=== PATIENT | male | born 1995 | race Caucasian/White ===

== ENCOUNTER 2023-06-24 21:09 | Emergency (ER) | payer SELFPAY ==
[2023-06-24 22:01] VITALS: RESP 16; TEMP 97.8
[2023-06-24] MEDS ORDERED: Kenalog-40 IM ONE (22:21)
[2023-06-24] MEDS ORDERED: Kenalog-40 ONE (22:25)
--- NOTE | 2023-06-24 22:31 | ERPHSYRPT ---
- History of Present Illness Time Seen by Provider: 06/24/23 21:29 Source: patient Exam Limitations: no limitations Patient Subjective Stated Complaint: pt states he has had a rash on the lt side of his face for last 2-3 days. has dermal piercing to lt face done last . states rash on his face itches and lowe. 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 pt ambulatory with steady gait noted. respirations nonlabored. skin warm and dry. patchy red areas noted to lt side of face. pt reports burning and itching to lt face. fswelling noted around dermal piercing to lt face Physician History: 27 years old healthy male presented in the ER with chief complaint of rash on the face for last 2 to 3 days with progressive worsening. Reports burning itching. Initially on the left and now on the right side. Denies any irritation/redness of eyes. Timing/Duration: day(s) (2) Allergies/Adverse Reactions: No Known Drug Allergies Allergy (Verified 06/24/23 22:01) Home Medications: No Reportable Medications [No Reported Medications] 06/24/23 [History] Hx Tetanus, Diphtheria Vaccination/Date Given: No (unsure) Hx Influenza Vaccination/Date Given: No Hx Pneumococcal Vaccination/Date Given: No Immunizations Up to Date: Yes Travel Risk - International Travel Have you traveled outside of the country in past 3 weeks: No - Coronavirus Screening Are you exhibiting any of the following symptoms?: No Close contact with a COVID-19 positive Pt in past 14-21 Days: No - Vaccine Status Have you recieved a Covid-19 vaccination: No - Review of Systems Constitutional: No Symptoms Eyes: No Symptoms Ears, Nose, & Throat: No Symptoms Respiratory: No Symptoms Cardiac: No Symptoms Skin: Rash Neurological: No Symptoms Endocrine: No Symptoms - Past Medical History 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" - Past Surgical History Past Surgical History: No - Social History Smoking Status: Current every day smoker How long have you smoked: 10 y rs Drug Use: marijuana Patient Lives Alone: No - Nursing Vital Signs Nursing Vital Signs: Initial Vital Signs Temperature 97.8 F 06/24/23 21:45 Pulse Rate 102 H 06/24/23 21:45 Respiratory Rate 16 06/24/23 21:45 Blood Pressure 136/104 06/24/23 21:45 O2 Sat by Pulse Oximetry 100 06/24/23 21:45 Pain Scale Pain Intensity 4 - Physical Exam General Appearance: no apparent distress, alert Eye Exam: PERRL/EOMI Ears, Nose, Throat Exam: TMs normal, pharynx normal Neck Exam: normal inspection, non-tender, supple, full range of motion Respiratory Exam: normal breath sounds, lungs clear Cardiovascular Exam: regular rate/rhythm, normal heart sounds Extremity Exam: normal inspection Neurologic Exam: alert, oriented x 3, cooperative Skin Exam: normal color, rash (Both cheeks with linear streaks/redness. Nontender.) SpO2 Interpretation: normal SpO2: 100 O2 Delivery: Room Air Ordered Tests: Medication Summary Discontinued Medications Generic Name Dose Route Start Last Admin Trade Name Freanya PRN Reason Stop Dose Admin Triamcinolone Acetonide 40 mg 06/24/23 22:21 06/24/23 22:25 Triamcinolone Acetonide 40 Mg/Ml Ml IM 06/24/23 22:22 40 mg STAT ONE Administration Triamcinolone Acetonide Confirm 06/24/23 22:25 Triamcinolone Acetonide 40 Mg/Ml Ml Administered 06/24/23 22:26 Dose 40 mg .ROUTE .STK-MED ONE - Progress Progress: unchanged Progress Note: 06/24/23 22:29 27 years old is evaluated for rash on the face which initially started on right and no on the left as well. Patient has itching and burning sensation. Patient is concerned it is probably poison [place]. I have given a shot of Kenalog and will have him outpatient follow-up. Counseled pt/family regarding: diagnosis, need for follow-up Medical Desision Making - Risk of complications Minimal Risk: Minimal risk of morbidity - Departure Departure Disposition: Home Clinical Impression: Facial dermatitis Condition: Stable Critical Care Time: No Referrals: DOCTOR,NO FAMILY [Primary Care Provider] - Follow up/PCP as directed GUCCI CARLISLE MD [ACTIVE STAFF] - Follow up with PCP 1 day Instructions: Poison [place], Poison [place], Poison [place] ([place]) Additional Instructions: Take Benadryl as needed. Follow-up with primary care for reevaluation. Return to ER for any worsening.
[2023-06-24 22:52] VITALS: BP 127/80; PULSE 97
[2023-06-24 23:57] VITALS: O2SAT 100
== END 2023-06-24 22:50 | disposition home or self-care (01) ==
LOC: ED 21:09
DX: L30.9 Dermatitis, unspecified (principal); Z28.310 Unvaccinated for COVID-19; Z72.0 Tobacco use
CPT/HCPCS: 96372; 99282; J3301

== ENCOUNTER 2024-11-25 16:21 | Emergency (ER) | payer MEDICAID ==
[2024-11-25 16:31] VITALS: TEMP 98.1
--- NOTE | 2024-11-25 16:36 | ERPHSYRPT ---
- History of Present Illness Patient Subjective Stated Complaint: PT states "I have had chest pain on and off for the past couple months and it seems to be getting worse. I have been checking my blood pressure and it has been off the charts." Triage Nursing Assessment: PT presented alert and oriented X 3, skin pwd. Pt amb ulates with an upright steady gait. Pt able to speak in clear full sentences. Pt resting comfortably on the bed. Timing/Duration: week(s) (6-8 weeks) Severity: mild Associated Symptoms: shortness of breath, chest pain Hx Tetanus, Diphtheria Vaccination/Date Given: No (unsure) Hx Influenza Vaccination/Date Given: No Hx Pneumococcal Vaccination/Date Given: No Immunizations Up to Date: No <CHRSI,GABRIELA - Last Filed: 11/25/24 16:50> <MYNOR SUAREZ - Last Filed: 11/25/24 17:24> - History of Present Illness Physician History: PT states "I have had chest pain on and off for the past couple months and it seems to be getting worse. I have been checking my blood pressure and it has been off the charts." History of vaping (CHRIS,GABRIELA) Allergies/Adverse Reactions: No Known Drug Allergies Allergy (Verified 06/24/23 22:01) Home Medications: No Reportable Medications [No Reported Medications] 06/24/23 [History] Travel Risk - International Travel Have you traveled outside of the country in past 3 weeks: No - Emerging Infectious Disease Are you exhibiting symptoms associated with any current EIDs: No <CHRIS,GABRIELA - Last Filed: 11/25/24 16:50> - Review of Systems Constitutional: No Fever, No Chills Eyes: No Symptoms Ears, Nose, & Throat: No Symptoms Respiratory: Dyspnea, No Cough Cardiac: Chest Pain, No Edema, No Syncope Abdominal/Gastrointestinal: No Abdominal Pain, No Nausea, No Vomiting, No Diarrhea Genitourinary Symptoms: No Dysuria Musculoskeletal: No Back Pain, No Neck Pain Skin: No Rash Neurological: No Dizziness, No Focal Weakness, No Sensory Changes Psychological: No Symptoms Endocrine: No Symptoms All Other Systems: Reviewed and Negative <CHRIS,GABRIELA - Last Filed: 11/25/24 16:50> - Past Medical History Pertinent Past Medical History: No 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" - Past Surgical History Past Surgical History: No - Social History Smoking Status: Current every day smoker How long have you smoked: 10 y rs Exposure to second hand smoke: Yes Drug Use: marijuana Patient Lives Alone: No - Social Determinants of Health Will the patient participate in the screening: Yes Do you worry about a steady place to live?: No Do you have any problems with any of the following?: No known problems In the past 12 months,have you had to go without utilities?: No Transportation Issues: No Has anyone in your support network made you feel unsafe?: No Have you or anyone in your house had to go without enough: No <CHRIS,GABRIELA - Last Filed: 11/25/24 16:50> - Physical Exam General Appearance: no apparent distress, alert Eye Exam: PERRL/EOMI, eyes nml inspection Ears, Nose, Throat Exam: normal ENT inspection, TMs normal, pharynx normal, moist mucous membranes Neck Exam: normal inspection, non-tender, supple, full range of motion Respiratory Exam: normal breath sounds, lungs clear, No respiratory distress Cardiovascular Exam: regular rate/rhythm, normal heart sounds, normal peripheral pulses Gastrointestinal/Abdomen Exam: soft, normal bowel sounds, No tenderness, No mass Back Exam: normal inspection, normal range of motion, No CVA tenderness, No vertebral tenderness Extremity Exam: normal inspection, normal range of motion, pelvis stable Neurologic Exam: alert, oriented x 3, cooperative, normal mood/affect, nml cerebellar function, nml station & gait, sensation nml, No motor deficits Skin Exam: normal color, warm, dry, No rash Lymphatic Exam: No adenopathy SpO2: 100 <CHRIS,GABRIELA - Last Filed: 11/25/24 16:50> - Nursing Vital Signs Nursing Vital Signs: Initial Vital Signs Temperature 98.1 F 11/25/24 16:23 Pulse Rate 88 11/25/24 16:23 Respiratory Rate 20 11/25/24 16:23 Blood Pressure 158/106 11/25/24 16:23 O2 Sat by Pulse Oximetry 100 11/25/24 16:23 Pain Scale Pain Intensity 0 - Course Nursing assessment & vital signs reviewed: Yes EKG Interpreted by Me: Sinus Rhythm - Radiology Exams Chest X-ray Interpretation: Interpreted by me, Reviewed by me <CHRISGABRIELA - Last Filed: 11/25/24 16:50> Ordered Tests: Active Orders 24 hr Category Date Time Status EKG-ER Only STAT Care 11/25/24 16:32 Active CHEST 2 VIEWS (PA AND LAT) Stat Exams 11/25/24 16:36 Taken CBC W DIFF Stat Lab 11/25/24 16:50 Completed CK-Creatinine Phosphokinase Stat Lab 11/25/24 16:50 Completed CMP Stat Lab 11/25/24 16:50 Completed TROPONIN Q4H Lab 11/25/24 16:50 Completed TROPONIN Q4H Lab 11/25/24 20:45 Ordered TROPONIN Q4H Lab 11/26/24 00:45 Ordered Urine Triage Profile Stat Lab 11/25/24 16:33 Ordered Medication Summary Generic Name Dose Route Start Last Admin Trade Name Freq PRN Reason Stop Dose Admin Sodium Chloride 1,000 mls @ 999 mls/hr 11/25/24 16:32 11/25/24 16:44 Sodium Chloride 0.9% 1000 Ml IV 11/25/24 17:32 Not Given .Q1H1M STA Lab/Rad Data: Laboratory Result Diagrams 11/25/24 16:50 11/25/24 16:50 Laboratory Results 11/25/24 11/25/24 11/25/24 Range/Units 16:50 16:50 16:50 WBC 9.3 H (4.23-9.07) x10^3/uL RBC 4.59 L (4.63-6.08) x10^6/uL Hgb 13.9 (13.7-17.5) g/dL Hct 39.7 L (40.1-51.0) % MCV 86.5 (79.0-92.2) fL MCH 30.3 (25.7-32.2) pg MCHC 35.0 (32.3-36.5) g/dL RDW 11.9 (11.6-14.4) % Plt Count 317 (163-337) x10^3/uL MPV 9.6 (9.4-12.4) fL Gran % 56.2 (34.0-67.9) % Immature Gran % (Auto) 0.1 (0.001-0.429) % Nucleat RBC Rel Count 0.0 (0.00-0.2) % Eos # (Auto) 0.20 (0.04-0.54) x10^3/uL Immature Gran # (Auto) 0.01 (0.001-0.031) x10^3u/L Absolute Lymphs (auto) 3.05 (1.32-3.57) x10^3/uL Absolute Monos (auto) 0.76 (0.30-0.82) x10^3/uL Absolute Nucleated RBC 0.00 (0.00-0.012) x10^3u/L Lymphocytes % 32.9 (21.8-53.1) % Monocytes % 8.2 (5.3-12.2) % Eosinophils % 2.2 (0.8-7.0) % Basophils % 0.4 (0.2-1.2) % Absolute Granulocytes 5.21 (1.78-5.38) x10^3/uL Basophils # 0.04 (0.01-0.08) x10^3/uL Sodium 140 (135-145) mmol/L Potassium 4.1 (3.5-5.1) mmol/L Chloride 107 (98-107) mmol/L Carbon Dioxide 24 (22-30) mmol/L Anion Gap 14.1 (5-15) MEQ/L BUN 15 (9-20) mg/dL Creatinine 1.05 (0.66-1.25) mg/dL Estimated GFR 99.2 ML/MIN Glucose 135 H (74-106) mg/dL Calcium 10.1 (8.4-10.2) mg/dL Total Bilirubin 0.50 (0.2-1.3) mg/dL AST 27 (17-59) U/L ALT 17 (0-50) U/L Alkaline Phosphatase 67 (38-126) U/L Creatine Kinase 154 (55-170) U/L Troponin I < 0.012 (0.000-0.033) ng/mL Serum Total Protein 7.9 (6.3-8.2) g/dL Albumin 5.0 (3.5-5.0) g/dL - Progress Progress: improved, re-examined Counseled pt/family regarding: lab results, diagnosis, rad results <MYNOR SUAREZ - Last Filed: 11/25/24 17:24> - Progress Progress Note: 11/25/24 17:20 This patient was evaluated initially by Dr. Perez. He transferred care to [place] at 1700. I interpreted the patient's laboratory data results. Based on the laboratory data results there are no acute, emergent medical issues. I interpreted the patient's twelve-lead EKG. There is no evidence of any acute ischemia. He has normal sinus rhythm, normal axis deviation, normal intervals and normal QRS. The QTc is normal. 11/25/24 17:23 I interpreted the patient's preliminary chest x-ray report. There is no acute cardiopulmonary process (MYNOR SUAREZ) Medical Desision Making - Diagnostic Testing Diagnostic test were ordered, analyzed, and reviewed by me: Yes Radiological Interpretation: Interpreted by me, Teleradiologist Report <MYNOR SUAREZ - Last Filed: 11/25/24 17:24> <GABRIELA PEREZ - Last Filed: 11/25/24 16:50> - Departure Departure Disposition: Home Critical Care Time: No <MYNOR SUAREZ - Last Filed: 11/25/24 17:24> - Departure Clinical Impression: Anxiety about health, Nonspecific chest pain Condition: Stable Referrals: DOCTOR,NO FAMILY [Primary Care Provider] - Follow up/PCP as directed Additional Instructions: Call your primary care provider on 11/27/2024, to make arrangements for follow- up appointment for further evaluation management.
[2024-11-25] MEDS: Sodium Chloride 0.9% 1000 ML 1,000 ML IV STA (16:44)
[2024-11-25 16:50] LABS: Absolute Neutrophil Ct (ANC) 5.21 x10^3/uL (1.78-5.38); BASOPHIL % 0.4 % (0.2-1.2); Basophil (Absolute #) 0.04 x10^3/uL (0.01-0.08); Eosinophil % 2.2 % (0.8-7.0); Hematocrit 39.7 % (40.1-51.0); Hemoglobin 13.9 g/dL (13.7-17.5); IMMATURE GRAN # 0.01 x10^3u/L (0.001-0.031); IMMATURE GRAN % 0.1 % (0.001-0.429); Lymphocyte (Absolute #) 3.05 x10^3/uL (1.32-3.57); Lymphocytes % 32.9 % (21.8-53.1); Mean Cell Volume 86.5 fL (79.0-92.2); Mean Corpuscular Hemoglobin 30.3 pg (25.7-32.2); Mean Platelet Volume 9.6 fL (9.4-12.4); Monocyte (Absolute #) 0.76 x10^3/uL (0.30-0.82); Monocytes % 8.2 % (5.3-12.2); Neutrophil % 56.2 % (34.0-67.9); Platelet Count 317 x10^3/uL (163-337); Red Blood Count 4.59 x10^6/uL (4.63-6.08); Red Cell Distribution Width 11.9 % (11.6-14.4); White Blood Count 9.3 x10^3/uL (4.23-9.07)
[2024-11-25 17:01] VITALS: RESP 18
[2024-11-25 17:12] LABS: ANION GAP 14.1 MEQ/L (5-15); BILIRUBIN,TOTAL 0.5 mg/dL (0.2-1.3); Calcium 10.1 mg/dL (8.4-10.2); Creatinine 1 1.05 mg/dL (0.66-1.25); EST GLOMERULAR FILTRATION RATE 99.2 ML/MIN; Potassium 4.1 mmol/L (3.5-5.1); Total Protein 7.9 g/dL (6.3-8.2)
[2024-11-25 17:28] VITALS: BP 123/86; PULSE 78; O2SAT 98
--- NOTE | 2024-11-25 20:22 | XRAY ---
Indication: Chest pain. Comparison: None PA/lateral chest hyperinflated and clear. Heart and mediastinal structures within normal limits. Bony thorax intact. Impression: Nonacute hyperinflated chest.
== END 2024-11-25 17:42 | disposition home or self-care (01) ==
LOC: ED 16:21
DX: R07.9 Chest pain, unspecified (principal); R06.02 Shortness of breath; F41.9 Anxiety disorder, unspecified
CPT/HCPCS: 36415; 71046; 80053; 82550; 84484; 85025; 93005; 99283; 99285

== ENCOUNTER 2025-08-27 14:24 | Emergency (ER) | payer MEDICAID ==
[2025-08-27 14:37] VITALS: TEMP 98.5
--- NOTE | 2025-08-27 14:39 | ERPHSYRPT ---
- History of Present Illness Time Seen by Provider: 08/27/25 14:39 Historian: patient Exam Limitations: no limitations Patient Subjective Stated Complaint: pt c/o of chest pressure and has had this issue before and was told that it is probably anxiety Triage Nursing Assessment: Pt was brought to the ER by his father, matthias leach, denies pain at this time, pulses normal, skin n/w/d, no difficulty breathing, vapes and smokes marijuana, doesn't appear to be in any distress Physician History: This is a 29-year-old white male patient who presents to the emergency department with substernal, central nonradiating pressure that has occasionally been intermittent but began again this morning. He went to the [facility] and they told him to come to the emergency room because he has chest pain. He takes no medications chronically and has no known drug allergies. Patient is currently not having chest pain. He has no shortness of breath. Patient does vape and smokes marijuana on occasion. Patient's room air oxygen saturation level is 98%. He himself has never been diagnosed with coronary artery disease. Patient is in no distress Timing/Duration: today Activities at Onset: none Quality: pressure Location: substernal, central Chest Pain Radiation: no radiation Severity of Pain-Max: mild Severity of Pain-Current: none Modifying Factors: Improves With: nothing Associated Symptoms: denies symptoms Prior Chest Pain/Cardiac Workup: no prior chest pain, no prior cardiac workup Nitro Today/Relief: no nitro taken today Aspirin Treatment Today: 81 mg x 4, provided by ED Allergies/Adverse Reactions: No Known Drug Allergies Allergy (Verified 08/27/25 14:38) Home Medications: No Reportable Medications [No Reported Medications] 06/24/23 [History] Hx Tetanus, Diphtheria Vaccination/Date Given: No (unsure) Hx Influenza Vaccination/Date Given: No Hx Pneumococcal Vaccination/Date Given: No Travel Risk - International Travel Have you traveled outside of the country in past 3 weeks: No - Emerging Infectious Disease Are you exhibiting symptoms associated with any current EIDs: No - Review of Systems Constitutional: No Symptoms Eyes: No Symptoms Ears, Nose, & Throat: No Symptoms Respiratory: No Symptoms Cardiac: Chest Pain (None now) Abdominal/Gastrointestinal: No Symptoms Genitourinary Symptoms: No Symptoms Musculoskeletal: No Symptoms Skin: No Symptoms Neurological: No Symptoms Psychological: No Symptoms Endocrine: No Symptoms Hematologic/Lymphatic: No Symptoms Immunological/Allergic: No Symptoms All Other Systems: Reviewed and Negative - Past Medical History Pertinent Past Medical History: No 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" - Past Surgical History Past Surgical History: No - Social History Smoking Status: Current every day smoker How long have you smoked: marijuana Exposure to second hand smoke: Yes Drug Use: marijuana - Social Determinants of Health Will the patient participate in the screening: Yes Do you worry about a steady place to live?: No Do you have any problems with any of the following?: No known problems In the past 12 months,have you had to go without utilities?: No Transportation Issues: No Has anyone in your support network made you feel unsafe?: No Have you or anyone in your house had to go w/o enough food: No - Nursing Vital Signs Nursing Vital Signs: Initial Vital Signs Pulse Rate 60 08/27/25 14:30 Respiratory Rate 12 08/27/25 14:30 Blood Pressure 129/88 08/27/25 14:30 O2 Sat by Pulse Oximetry 98 08/27/25 14:30 Pain Scale Pain Intensity 0 - Physical Exam General Appearance: no apparent distress, alert, anxiety Eye Exam: PERRL/EOMI, eyes nml inspection Ears, Nose, Throat Exam: normal ENT inspection, moist mucous membranes Neck Exam: normal inspection, non-tender, supple, full range of motion Respiratory Exam: normal breath sounds, lungs clear, respiratory distress, airway intact Cardiovascular Exam: regular rate/rhythm, normal heart sounds, normal peripheral pulses Gastrointestinal/Abdomen Exam: soft, normal bowel sounds, No tenderness Rectal Exam: not done Back Exam: normal inspection, normal range of motion, No CVA tenderness, No vertebral tenderness Extremity Exam: normal inspection, normal range of motion, pelvis stable Neurologic Exam: alert, oriented x 3, cooperative, rubber heel and sole press tender II-XII nml as tested, normal mood/affect, nml cerebellar function, nml station & gait, sensation nml Skin Exam: normal color, warm, dry Lymphatic Exam: No adenopathy SpO2 Interpretation: normal SpO2: 99 O2 Delivery: Room Air - Course Nursing assessment & vital signs reviewed: Yes EKG Interpreted by Me: RATE (65), Sinus Rhythm, NORMAL AXIS, NORMAL INTERVALS, NORMAL QRS, Other (QTc 385 no acute ischemia) Ordered Tests: Active Orders 24 hr Category Date Time Status Slotter Operator STAT Care 08/27/25 14:46 Active EKG-ER Only STAT Care 08/27/25 14:45 Active IV Insertion STAT Care 08/27/25 14:45 Active CHEST 1 VIEW (PORTABLE) Stat Exams 08/27/25 14:46 Completed CBC W DIFF Stat Lab 08/27/25 14:57 Completed CMP Stat Lab 08/27/25 14:57 Completed TROPONIN Q4H Lab 08/27/25 14:57 Completed TROPONIN Q4H Lab 08/27/25 19:00 Ordered TROPONIN Q4H Lab 08/27/25 23:00 Ordered Medication Summary Discontinued Medications Generic Name Dose Route Start Last Admin Trade Name Deni PRN Reason Stop Dose Admin Aspirin 324 mg 08/27/25 14:45 08/27/25 15:00 Aspirin 81 Mg Tab.Chew PO 08/27/25 14:46 324 mg STAT ONE Administration Aspirin Confirm 08/27/25 15:00 Aspirin 81 Mg Tab.Chew Administered 08/27/25 15:01 Dose 324 mg .ROUTE .[place]-MED ONE Lab/Rad Data: Laboratory Result Diagrams 08/27/25 14:57 08/27/25 14:57 Laboratory Results 08/27/25 08/27/25 08/27/25 Range/Units 14:57 14:57 14:57 WBC 9.6 H (4.23-9.07) x10^3/uL RBC 5.07 (4.63-6.08) x10^6/uL Hgb 15.0 (13.7-17.5) g/dL Hct 44.9 (40.1-51.0) % MCV 88.6 (79.0-92.2) fL MCH 29.6 (25.7-32.2) pg MCHC 33.4 (32.3-36.5) g/dL RDW 12.0 (11.6-14.4) % Plt Count 322 (163-337) x10^3/uL MPV 9.5 (9.4-12.4) fL Gran % 57.3 (34.0-67.9) % Immature Gran % (Auto) 0.2 (0.001-0.429) % Nucleat RBC Rel Count 0.0 (0.00-0.2) % Eos # (Auto) 0.15 (0.04-0.54) x10^3/uL Immature Gran # (Auto) 0.02 (0.001-0.031) x10^3u/L Absolute Lymphs (auto) 3.07 (1.32-3.57) x10^3/uL Absolute Monos (auto) 0.83 H (0.30-0.82) x10^3/uL Absolute Nucleated RBC 0.00 (0.00-0.012) x10^3u/L Lymphocytes % 31.9 (21.8-53.1) % Monocytes % 8.6 (5.3-12.2) % Eosinophils % 1.6 (0.8-7.0) % Basophils % 0.4 (0.2-1.2) % Absolute Granulocytes 5.52 H (1.78-5.38) x10^3/uL Basophils # 0.04 (0.01-0.08) x10^3/uL Sodium 138 (135-145) mmol/L Potassium 4.5 (3.5-5.1) mmol/L Chloride 102 (98-107) mmol/L Carbon Dioxide 26 (22-30) mmol/L Anion Gap 14.6 (5-15) MEQ/L BUN 12 (9-20) mg/dL Creatinine 1.32 H (0.66-1.25) mg/dL Estimated GFR 75.4 ML/MIN Glucose 95 (74-106) mg/dL Calcium 10.1 (8.4-10.2) mg/dL Total Bilirubin 0.40 (0.2-1.3) mg/dL AST 22 (17-59) U/L ALT 14 (0-50) U/L Alkaline Phosphatase 66 (38-126) U/L Troponin I < 0.012 (0.000-0.033) ng/mL Serum Total Protein 8.0 (6.3-8.2) g/dL Albumin 5.1 H (3.5-5.0) g/dL - Progress Progress: improved, re-examined, unchanged Air Movement: good Progress Note: 08/27/25 17:14 My medical decision making and the assignment of moderate complexity of this patient's medical issue today is based on review of the patient's past medical history, review the patient's medication list, review the patient drug allergy list, history of present illness and physical findings on examination. The workup in this patient includes CBC, CMP, magnesium level, intravenous line, twelve-lead EKG, troponin level, D-dimer level and chest x-ray. Differential diagnosis includes anxiety about health, muscle skeletal pain, myocardial infarction, arrhythmia, electrolyte abnormalities, pulmonary embolism, pulmonary infiltrate I interpreted the preliminary chest x-ray report. I see no acute, emergent medical issues. The radiologist interpreted the final chest x-ray report. There are no acute abnormalities. Blood Culture(s) Obtained: No Antibiotics given: No Counseled pt/family regarding: lab results, diagnosis, need for follow-up, rad results Medical Desision Making - Diagnostic Testing Diagnostic test were ordered, analyzed, and reviewed by me: Yes Radiological Interpretation: Interpreted by me, Reviewed by me, Teleradiologist Report - Risk of complications Low Risk: Low risk of morbidity from additional dx testing or treatment - Departure Departure Disposition: Home Clinical Impression: Nonspecific chest pain Condition: Stable Critical Care Time: No Referrals: DOCTOR,NO FAMILY [Primary Care Provider, UNKNOWN] - Follow up/PCP as directed Additional Instructions: Call your primary care provider tomorrow, 08/28/2025, to make arrangements for follow-up appointment for further evaluation management.
[2025-08-27 14:59] LABS: BASOPHIL % 0.4 % (0.2-1.2); Basophil (Absolute #) 0.04 x10^3/uL (0.01-0.08); Eosinophil (Absolute #) 0.15 x10^3/uL (0.04-0.54); Hematocrit 44.9 % (40.1-51.0); Hemoglobin 15.0 g/dL (13.7-17.5); IMMATURE GRAN # 0.02 x10^3u/L (0.001-0.031); IMMATURE GRAN % 0.2 % (0.001-0.429); Lymphocyte (Absolute #) 3.07 x10^3/uL (1.32-3.57); Mean Corpuscular Hemoglobin 29.6 pg (25.7-32.2); Mean Corpuscular Hgb Concent. 33.4 g/dL (32.3-36.5); Monocyte (Absolute #) 0.83 x10^3/uL (0.30-0.82); NUCLEATED RBC # 0.00 x10^3u/L (0.00-0.012); NUCLEATED RBC % 0.0 % (0.00-0.2); Platelet Count 322 x10^3/uL (163-337); Red Blood Count 5.07 x10^6/uL (4.63-6.08); White Blood Count 9.6 x10^3/uL (4.23-9.07)
[2025-08-27] MEDS: BABY ASPIRIN 81 MG CHEW PO ONE (15:00)
[2025-08-27] MEDS ORDERED: BABY ASPIRIN 81 MG CHEW ONE (15:00)
[2025-08-27 15:13] LABS: Calcium 10.1 mg/dL (8.4-10.2); Carbon Dioxide 26.0 mmol/L (22-30); Creatinine 1 1.32 mg/dL (0.66-1.25); EST GLOMERULAR FILTRATION RATE 75.4 ML/MIN; Glucose 95.0 mg/dL (74-106); Potassium 4.5 mmol/L (3.5-5.1); SGOT/AST 22.0 U/L (17-59); SGPT/ALT 14.0 U/L (0-50); Total Protein 8.0 g/dL (6.3-8.2)
[2025-08-27 16:13] VITALS: BP 112/76; PULSE 67; RESP 14
--- NOTE | 2025-08-27 16:42 | XRAY ---
Indication: Chest pain. Comparison: November 25, 2024 Portable chest again demonstrates normal heart, lungs, and bony thorax.
[2025-08-27 17:08] VITALS: O2SAT 99
== END 2025-08-27 17:27 | disposition home or self-care (01) ==
LOC: ED 14:24
DX: R07.9 Chest pain, unspecified (principal); Z72.0 Tobacco use